=== PATIENT | female | born 1945 | race Caucasian/White ===

== ENCOUNTER 2024-05-04 05:20 | Inpatient (IN) ==
--- NOTE | 2024-04-29 14:45 | Anesthesiology Consultation ---
Date of Service April 29, 2024 Assessment & Plan (1) Encounter for pre-operative examination: - Check BSG AM DOS - Infectious disease screening: Per assessment on 04/29/24: No known recent infectious disease contacts or current infectious disease symptoms. Chart Review Chart Review: Acceptable Risk for Surgery (pending evaluation DOS) and Patient NOT seen in Pre Admission Testing History Surgery Operation Date: 05/04/24 07:15 Proposed Procedures p Laparoscopic Sigmoid Colon Resection as well as, Right Salpingo-Oophorectomy - Sagar Garza, Height/Weight Height: 5 ft 5 in Weight: 74.389 kg Allergies Allergy/AdvReac Type Severity Reaction Status Date / Time Iodinated Contrast Media Allergy Severe Anaphylaxis Verified 04/29/24 14:03 Penicillins Allergy Severe "heart Verified 04/29/24 14:03 stopped" nickel Allergy Mild skin Verified 04/29/24 14:03 irritation/infection Medications Home Medications Medication Instructions Recorded Confirmed Last Taken cyanocobalamin (vitamin B-12) 2,500 mcg sublingual UD 02/20/24 04/29/24 04/16/24 2,500 mcg sublingual tablet (Vitamin B-12) lisinopril 2.5 mg tablet 2.5 mg PO QAM 02/20/24 04/29/24 04/19/24 05:00 metformin 850 mg tablet 850 mg PO BID 02/20/24 04/29/24 04/18/24 pantoprazole 40 mg tablet,delayed 40 mg PO QAM 02/20/24 04/29/24 04/19/24 05:00 release peg 3350-electrolytes 236 240 ml PO Q10M #4,000 mL 04/06/24 04/28/24 04/19/24 gram-22.74 gram-6.74 gram-5.86 gram solution (GaviLyte-G) calcium carbonate 600 mg-vitamin 1 tab PO DAILY 04/16/24 04/29/24 04/16/24 D3 5 mcg (200 unit) tablet Past Medical History Medical History Diabetes Taking Lisinopril for renal protection (hx diabetes) Diverticular disease Diverticulitis 02/2024- resolved per patient Dysphagia EGD 04/19/24 [facility] > 4cm hiatal hernia, changes consistent with Browne's esophagus Edema of both ankles Chronic Environmental and seasonal allergies GERD (gastroesophageal reflux disease) History of rectal bleeding 02/2024- R/t diverticulitis per [facility] visit No current issues per patient Hx of cervical cancer Age ~38, removal of cervix only Iron deficiency anemia Receiving iron infusions, last one was ~ [address] [facility] Mass of colon Ovarian mass, right Stricture of sigmoid colon Past Family History Family History Sister Breast cancer Past Surgical History Surgical History History of esophagogastroduodenoscopy (EGD) History of lumbar surgery (2003) L5-L6 History of open reduction and internal fixation (ORIF) procedure left arm History of partial hysterectomy ~age 70 History of tonsillectomy and adenoidectomy Hx of appendectomy w/exploratory laparotomy for HAYDEE and "took appendix too" Hx of cardiac catheterization > 6 years ago- No stents Hx of colonoscopy Social History Smoking Status: Never smoker Do You Dip or Chew Tobacco: No Hx Alcohol Use: No Hx Substance Use: No substance use type: does not use Lab Results Anesthesia Preop Results Results Anesthesia Widget: WBC 9.07 K/ul (4.8-10.8) 04/29/24 Hgb 13.2 g/dl (12.0-16.0) 04/29/24 Hct 41.9 % (37.0-47.0) 04/29/24 Plt 246 K/uL (130-400) 04/29/24 Na 138 mmol/L (136-145) 04/29/24 K 4.8 mmol/L (3.5-5.1) 04/29/24 Cl 105 mmol/L (98-107) 04/29/24 CO2 26 mmol/L (21-32) 04/29/24 BUN 15 mg/dl (6-23) 04/29/24 Creat 0.81 mg/dl (0.6-1.2) 04/29/24 Glucose Level 119 mg/dl (70-99(Fasting)) H 04/29/24 Testing Electrocardiogram Date: 02/20/24 NSR at 89bpm. Cannot r/o anterior infarct, age undetermined. No physical limitations and no SOB with stairs noted per PAT RN phone interview 04/29/24* Chest X-Ray Date: 02/20/24 Findings: + NAD
[2024-05-04] MEDS: metroNIDAZOLE 500 MG/100 ML BAG IV SCH ×2 (06:18→15:51)
[2024-05-04] MEDS: HEPARIN SOD 5,000 UNIT/0.5 ML VIAL SQ SCH (06:18)
[2024-05-04] MEDS: LR 15ML/HR IV SCH (06:18)
[2024-05-04] MEDS ORDERED: fentaNYL citrate PF 100 MCG/2 ML VIAL ONE ×3 (06:46→10:20)
[2024-05-04] MEDS ORDERED: ROCURONIUM BROMIDE 10 MG/ML 5 ML VIAL IV ONE ×2 (06:46→09:24)
[2024-05-04] MEDS ORDERED: LIDOCAINE 2% 2 ML VIAL/AMP(20MG/ML) INFIL ONE (06:46)
[2024-05-04] MEDS ORDERED: PROPOFOL IV EMULSION 10 MG/ML 20 ML VIAL IV ONE (06:46)
[2024-05-04] MEDS ORDERED: MIDAZOLAM HCL 1 MG/ML 2ML VIAL ONE (06:46)
[2024-05-04] MEDS ORDERED: ONDANSETRON INJ 2 MG/ML 2 ML VIAL IV PRN ×2 (06:51→11:46)
[2024-05-04] MEDS ORDERED: LABETALOL HCL IV 5 MG/ML 20ML IV PRN (06:51)
[2024-05-04] MEDS ORDERED: ATROPINE SULFATE 0.1 MG/ML 10ML SYR IV PRN (06:51)
[2024-05-04] MEDS ORDERED: PROMETHAZINE HCL 6.25 MG in SODIUM CHLORIDE 0.9% 50 ML IV PRN (06:51)
[2024-05-04] MEDS ORDERED: ACETAMINOPHEN 1000 MG/100 ML IV IV ONE (06:56)
--- NOTE | 2024-05-04 06:59 | History & Physical Bridge Note ---
Date of Service May 04, 2024 History & Physical Bridge Note I have examined the patient, reviewed the History & Physical and in the interval since the performance of the History & Physical I have noted the following changes of clinical significance: no changes noted
[2024-05-04] MEDS: CIPROFLOXACIN / D5W 400 MG/200 ML BAG IV SCH ×2 (07:17→18:05)
[2024-05-04] MEDS ORDERED: KETAMINE HCL 10MG/ML SYR ONE (07:41)
[2024-05-04] MEDS ORDERED: LABETALOL HCL IV 5 MG/ML 20ML IV ONE (08:07)
[2024-05-04] MEDS ORDERED: DexMEDEtomidine HCL IV 100 MCG/ML VIAL IV ONE (08:13)
[2024-05-04] MEDS ORDERED: SUGAMMADEX SODIUM 200 MG/2 ML VIAL IV ONE (09:55)
[2024-05-04] MEDS: BUPIVACAINE/EPINEPHRINE 0.5% MPF 1:200,000 30 ML VIAL ONE (10:05)
[2024-05-04] MEDS ORDERED: ONDANSETRON INJ 2 MG/ML 2 ML VIAL ONE (10:21)
[2024-05-04] MEDS ORDERED: HYDROmorphone INJ 2 MG/ML SYR/VIAL ONE (10:22)
--- NOTE | 2024-05-04 10:28 | Post Operative Brief Note ---
PG Immediate Post Op with CF Date of Surgery May 04, 2024 Pre & Post Diagnosis Operation Date: 05/04/24 07:15 Pre-Op Diagnosis: Mass of Colon Stricture Sigmoid Colon Right Ovarian Cyst Post-Op Diagnosis: Mass of Colon Stricture Sigmoid Colon Right Ovarian Cyst I identified the patient and participated in the time-out.: Yes Procedure Operation Date: 05/04/24 07:15 Actual Procedures p Laparoscopic Sigmoid Coloectomy with Right Salpingo-Oophorectomy, Take down of Colocolonic Fistual(Not Applicable) - Sagar Garza DO Surgeon Sagar Garza DO Vp Design carmen Fuentes Estimated Blood Loss 100 Findings Consistent with Post-Op Diagnosis Specimens Specimen Description: A. Right Tube and Ovary B. Sigmoid Colon C. Additional Distal Margin Drains Vallejo Catheter and Mohinder-Mortensen Drain
[2024-05-04] MEDS: KETOROLAC 30 MG/ML VIAL IV PRN (10:40)
[2024-05-04] MEDS: HYDROmorphone INJ 1 MG/ML SYRINGE IV PRN (10:41)
[2024-05-04] MEDS: HYDROmorphone INJ 0.5 MG/0.5 ML SYR IV PRN (11:05)
--- NOTE | 2024-05-04 11:39 | Anesthesiology Progress Note ---
Date of Service May 04, 2024 Anesthesia Post Procedure Vital Signs Vital Signs: Temp Pulse Pulse Resp BP BP Pulse Ox 05/04/24 11:30 36.2 C L 61 15 131/61 97 05/04/24 11:20 60 15 134/62 97 05/04/24 11:10 63 15 154/83 H 99 05/04/24 11:00 62 15 139/73 97 05/04/24 10:55 58 L 15 134/63 97 05/04/24 10:45 57 L 15 150/67 H 95 05/04/24 10:35 36.1 C L 55 L 17 150/67 H 99 05/04/24 05:49 36.7 C 88 20 158/94 H 97 O2 Del Method O2 Flow Rate 05/04/24 11:30 Nasal Cannula 2 05/04/24 11:20 Oxymask 5 05/04/24 11:10 Oxymask 5 05/04/24 11:00 Oxymask 5 05/04/24 10:55 Oxymask 5 05/04/24 10:45 Oxymask 5 05/04/24 10:35 Oxymask 5 05/04/24 05:49 Room Air Transfer of Care Handoff Completed per policy Notes Mental Status: alert / awake / arousable Patient Amnestic to Procedure: Yes Nausea / Vomiting: adequately controlled Pain: adequately controlled Airway Patency, RR, SpO2: stable & adequate BP & HR: stable & adequate Hydration State: stable & adequate Anesthetic Complications: no major complications apparent
[2024-05-04] MEDS ORDERED: HYDROmorphone PCA 30 MG/30 ML IV PRN (11:46)
[2024-05-04] MEDS ORDERED: NALOXONE HCL 0.4 MG/1 ML VIAL/CARP IV PRN (11:46)
--- NOTE | 2024-05-04 11:55 | Operative Report ---
PG Post Operative Report Pre & Post Diagnosis Operation Date: 05/04/24 07:15 Pre-Op Diagnosis: Mass of Colon Stricture Sigmoid Colon Right Ovarian Cyst Post-Op Diagnosis: Mass of Colon Stricture Sigmoid Colon Right Ovarian Cyst I identified the patient and participated in the time-out.: Yes Procedure Operation Date: 05/04/24 07:15 Actual Procedures p Laparoscopic Sigmoid Coloectomy with Right Salpingo-Oophorectomy, Take down of Colofallo Fistual(Not Applicable) - Sagar Garza DO Surgeon Sagar Garza DO Scientific Diver carmen Fuentes Estimated Blood Loss 100 Findings Consistent with Post-Op Diagnosis Specimens 1. sigmoid colon 2. right ovary/fallopian tube 3. additional distal margin Description of Procedure After informed consent was obtained the patient was taken to the operating room and placed in supine position. After successful intubation the patient was placed in a low lithotomy position in yellowfin stirrups. A Vallejo catheter was placed sterilely. The abdomen and perineum were sterilely prepped and draped in usual fashion. I began by making a supraumbilical incision with an 11 blade scalpel and carried this down through the soft tissue using cautery. Anterior fascia was opened using cautery and two #0 Vicryl stay sutures were placed. Peritoneum was entered using blunt finger penetration and a 12 mm Ricci trocar was placed. The abdomen was insufflated to 18 mmHg. Laparoscope was inserted and the abdomen was examined in 360 degrees. The patient was placed in a Trendelenburg position and slightly airplaned to the right. There was no evidence of any metastatic disease. The tattoo eulogio left by gastroenterology was readily apparent in the sigmoid colon. There was also a large simple cyst of the right ovary. The left tube and ovary looked normal. I placed a right lower quadrant 12 mm trocar a right mid abdominal 5 mm trocar and eventually a left lower quadrant 5 mm trocar. I was able to readily palpate through the graspers that the mass in the sigmoid colon which was just proximal to the tattoo eulogio. I was also able to easily manipulate the right ovary, fallopian tube and cyst. Because it appeared benign and the cyst was tightly adherent to the right pelvic wall I decided to drain the cyst first. I deroofed the cyst using the harmonic scalpel. I drained probably 200 cc of clear serous appearing fluid. Once this was done I was able to manipulate the right ovary and fallopian tube. I was able to identify the right ureter to keep it out of harm's way. I took down the ovarian vessels using the harmonic scalpel. I was then able to come across the fallopian tube as well as the ligament and completely excise the small residual fallopian tube right ovary and cyst wall. They were placed into an Endo Catch bag and removed from the pelvis. I then suctioned and irrigated out the entire pelvis. Next I mobilized the left and sigmoid colon along the white line of Toldt using blunt dissection as well as harmonic scalpel. I noted that there was initially what appeared to be an adhesion from the sigmoid colon to the lower pelvic sidewall. However after closer inspection this appeared to be a fistulous connection. It was unclear to me what it was connected to but this would clearly have to be detached. This l agustín was part of the process at her prior admission where she was felt to have diverticulitis. I was able to use a JOSAFAT purple cartridge linear stapler to transect this connection. Once I transected the connection I could then see that the colon was actually fistulized to distal rectum. Once I took down the fistulous tract I was then able to easily mobilize the sigmoid colon down over the peritoneal reflection. I then made a window in the mesentery of the rectosigmoid colon using the harmonic scalpel. I then transected the colon distal to the mass using a JOSAFAT purple cartridge linear staplers. I then continued to use the harmonic scalpel to take down the mesentery of the sigmoid colon until we were several inches proximal to the mass itself. Next I elongated the left lower quadrant incision and open the fascia using cautery. We were able to deliver the distal stapled end of the sigmoid colon onto the anterior abdominal wall. We did towel off the incision to help prevent infecti on. We delivered the sigmoid colon as well as the mass. I put a bowel clamp proximal to the mass and divided the colon using a Braden scissor. The mass was in the central portion of the specimen with good margin distally and proximally. Next we used sizers to estimate the lumen size to be 28 mm. The anvil of a 28 mm circular stapler was used. I used 2-0 silk to hand sew a pursestring and then inserted the anvil and secured it using the pursestring. There was no ischemia and there appeared to be good blood flow. This was then placed back into the abdominal cavity. At this point we changed our gloves. I closed the fascial defect using 0 PDS in a running fashion. We re-insufflated the abdomen. Reinserted the laparoscope. Next we used sizers to come in through the rectum to the rectal stump. The staple line was slightly crooked causing the rectal stump to lay awkwardly which I did not prefer. I therefore used a JOSAFAT purple stapler to take several centimeters distal to what I previously stapled. We did send this as additional distal margin. Once this occurred I then brought in the handle of the EEA circular stapler. The postion of the rectum looked much better. I deployed the spike anterior to the staple line. We connected the anvil to the handle secured them together and fired creating a circular anastomosis. Both donuts did appear to be intact. We used a rigid proctoscope to evaluate the anastomosis and inflated it under water. It was in fact airtight. We thoroughly irrigated the lower pelvis. There was adequate hemostasis. The colon laid nice and flat without tension and there was no evidence of ischemia. A 10 flat Mohinder-Mortensen drain was placed into the pelvis and brought out through the right lower quadrant trocar site. It was secured to the skin using 0 Vicryl. A final look around the abdomen showed no other abnormalities. The trocars were all removed and the abdomen desufflated. The fascia of the camera port was closed using 0 Vicryl in a [id number] fashion. All the wounds were irrigated. The larger incision was closed using 3-0 Vicryl for deep layers and 4-0 Monocryl for skin. 10 cc's of Exparel was injected around this larger incision. The smaller incisions were all closed using 4-0 Monocryl. Marcaine with epinephrine was injected around those incisions. Dermabond glue was used as a dressing on all of the incisions. The patient was awakened extubated and transferred to recovery in stable condition. My physician anesthetic assistant was present for the entire case was instrumental in all aspects of the case including access, running the camera, assisting with the dissection, anastomosis wound closure and dressing placement. I attest to the content of the Intraoperative Record and any orders documented therein. Any exceptions are noted below.
[2024-05-04] MEDS: HYDROmorphone INJ 1 MG/ML SYRINGE ONE (12:28)
[2024-05-04] MEDS: LACTATED RINGER'S 1,000 ML IV SCH (12:46)
[2024-05-04] MEDS: SODIUM CHLORIDE 0.9% 1,000 ML IV SCH (13:25)
[2024-05-04] MEDS: ACETAMINOPHEN 1,000 MG/100 ML VIAL IV SCH (13:29)
[2024-05-04] MEDS ORDERED: PHARMACY GLYCEMIC MGMT CONSULT PRN (14:23)
[2024-05-04] MEDS: INSULIN ASPART PER UNIT CHARGE SC SCH (15:01)
[2024-05-04] MEDS: LANTUS PER UNIT CHARGE SC ONE (15:01)
--- NOTE | 2024-05-04 15:03 | Pharmacy Report ---
Pharmacy Glycemic Short Note 2 - Date of Service May 04, 2024 - Glycemic Short BSG Results (Last 24 hours): 05/04/24 05/04/24 05/04/24 06:44 10:36 14:55 POC Glucose 165 H 205 H 240 H OUTPATIENT ANTIDIABETIC REGIMEN: * Metformin 850 mg BID * HbA1c: ordered for 05/05/2024 ASSESSMENT: * Melinda is a 78 YO F admitted for a sigmoid coloectomy and with a history of T2DM . Pharmacy has been consulted to assist with glycemic management while inpatient. Patient is currently NPO. * Patient received no steroids pre-operatively Fasting BSG this AM is acceptable . Lantus was initiated for basal glycemic control with 5 units being given in the afternoon and a protocol for BID dosing being added for additional control as needed. * Novolog was initiated at a weight based stress of 2. PLAN FOR INPATIENT GLYCEMIC CONTROL: * Hold outpatient oral diabetes medications * Basal insulin * Lantus 0-5 units SQ BID, 5 units given at 15:00 on 05/04 * Bolus insulin * NovoLog per scale ACHS or Q6hrs while NPO * Goal Range: Low 110 mg/dL - High 140 mg/dL * Correction Factor: 30 mg/dL/unit * Nutritional / Prandial insulin per carb ratio of 1 unit per 10 grams CHO consumed
[2024-05-04] MEDS: LANTUS PER UNIT CHARGE SC SCH (22:23)
[2024-05-05] MEDS: KETOROLAC TROMETHAMINE 15 MG/ML VIAL IV ONE (00:29)
[2024-05-05] MEDS: hydrALAZINE HCL 20 MG/ML VIAL IV STA (01:58)
[2024-05-05 07:24] LABS: Basophils # (auto) 0.02 K/uL (0.00-0.20); Basophils % (auto) 0.2 %; Eosinophils # (auto) 0.02 K/uL (0.00-0.50); Eosinophils % (auto) 0.2 %; Hemoglobin 11.4 g/dl (12.0-16.0); Immature Granulocytes # (auto) 0.05 K/uL (0.01-0.20); Immature Granulocytes % (auto) 0.4 %; Lymphocytes # (auto) 1.87 K/uL (1.20-3.40); Lymphocytes % (auto) 14.5 %; Mean Corpuscular Hemoglobin 27.2 pg (25.0-34.0); Mean Corpuscular Hgb Conc 32.6 g/dL (32.0-36.0); Mean Corpuscular Volume 83.5 fL (80.0-100.0); Mean Platelet Volume 9.9 fL (9.4-12.4); Monocytes # (auto) 0.77 K/uL (0.11-0.59); Neutrophils # (auto) 10.18 K/uL (1.40-6.50); Neutrophils % (auto) 78.7 %; Platelet Count 249 K/uL (130-400); RDW Coefficient of Variation 21.6 % (11.5-14.5); RDW Standard Deviation 63.1 fL (36.4-46.3); Red Blood Count 4.19 M/uL (4.20-5.40); White Blood Count 12.91 K/ul (4.8-10.8)
[2024-05-05 07:40] LABS: Calcium 8.5 mg/dl (8.6-10.3); Creatinine Clr Calc Pharmacy 77.3 ml/min; Est GFR (African American) 101.2 ml/min; Est GFR (Non-African American) 87.3 ml/min; Potassium 4.1 mmol/L (3.5-5.1)
[2024-05-05 07:42] LABS: RBC Morphology Unremarkable
--- NOTE | 2024-05-05 07:53 | Surgery Progress Note ---
Date of Service May 05, 2024 Assessment & Plan (1) Mass of colon: Plan: POD#1 sigmoid colectomy WBC 12.9, Hbg 11.4, Cr 0.6 HTN overnight and given a 1x dose of hydralazine. will order pts home lisinopril this AM Making good urine & ambulating well, will d/c awad catheter [employer]QUIPMENT TECHNICIAN never initiated yesterday as pt without complaints of abdominal pain and was doing well with standing tylenol. therefore i will d/c it and order prn IV doses should she need it Will likely start dvt ppx in form of lovenox today Sips/chips for this AM, if continues to do well will adv to clears later today OOB ambulating, pulmonary toilet, continue CORTEZ drain as above. doing very well. no pain. will try clears today. no acute post op issues. Admission and Anticipated Discharge Date Admission Date: May 04, 2024 Subjective Patient reports feeling well this AM. Denies abdominal pain or nausea. Had a severe headache overnight, given toradol x1 with improvement. She is ambulating the hallways. Physical Exam Physical Exam: awake/alert, no distress Respiratory: normal respiratory effort Gastrointestinal (Abdomen): Inspection/Auscultation: + abdominal surgical incision (c/d/i with skin glue, no signs of infection) and + abdominal surgical drain present (serosang., 225cc documented since OR); abdomen not distended Percussion/Palpation: abdomen soft; abdomen nontender Results & Data Vital Signs (Past 12 Hours) Vital Signs Temp Pulse Resp BP Pulse Ox O2 Del Method 05/05/24 03:49 98.1 F 74 12 155/71 H 96 Room Air 05/05/24 00:00 97.9 F 63 12 175/73 H 92 Room Air 05/04/24 20:16 97.3 F L 63 12 187/78 H 97 Room Air PG Care Time/CCT Total # of Minutes Spent Total Time Spent with Patient: Total time spent is greater than 50% in coordination of care (as documented) at patient's floor/unit and/or counseling patient: Coding Level of Care Code 77364 Post Operative Follow-Up Diagnoses Mass of colon K63.89
[2024-05-05] MEDS ORDERED: HYDROmorphone INJ 0.5 MG/0.5 ML SYR IV PRN ×2 (07:55)
[2024-05-05 08:15] LABS: Estimated Average Glucose 160 mg/dl; Hemoglobin A1C 7.2 % (4.5-5.6)
[2024-05-05] MEDS: lisinopril 2.5 MG TAB PO SCH (08:39)
[2024-05-05] MEDS: PANTOprazole 40 MG TAB PO SCH (08:39)
--- NOTE | 2024-05-05 10:33 | Hospitalist Consultation ---
Date of Consultation May 05, 2024 Assessment & Plan (1) Postoperative hypertension: Asymptomatic No need to treat except with her routine medication of lisinopril unless sBP > 220 or dBP > 120 consistently as more likely to overtreat and cause orthostasis rather than any benefit. Continue lisinopril Hydralazine for sBP > 220, sBP > 120 (2) Diabetes: HbA1C 7.2. No need to change outpatient regimen on discharge Pharmacy consulted for management per primary team (3) GERD (gastroesophageal reflux disease): Continue pantoprazole Plan Thank you for the consult we will continue to follow the patient with you History of Present Illness Reason for Consultation: post op HTN Attending Physician: Sagar Garza, DO History of Present Illness Melinda Collins is a 78 year old female presents for elective Laparoscopic Sigmoid Colectomy with Right Salpingo-Oophorectomy performed yesterday by Dr Garza. Estimated blood loss 100ml. No complication mentioned in operative note. Medicine consulted for post operative hypertension. She received her usual lisinopril 2.5mg PO this morning. BP 207/75. Other than her abdomen she currently feels at her baseline. No vision changes, dizziness or chest pain. Allergies Allergy/AdvReac Type Severity Reaction Status Date / Time Iodinated Contrast Media Allergy Severe Anaphylaxis Verified 05/04/24 05:54 Penicillins Allergy Severe "heart Verified 05/04/24 05:54 stopped" nickel Allergy Mild skin Verified 05/04/24 05:54 irritation/infection Home Medications Medication Instructions Recorded Confirmed Type cyanocobalamin (vitamin B-12) 2,500 mcg sublingual UD 02/20/24 05/04/24 History 2,500 mcg sublingual tablet (Vitamin B-12) lisinopril 2.5 mg tablet 2.5 mg PO QAM 02/20/24 05/04/24 History metformin 850 mg tablet 850 mg PO BID 02/20/24 05/04/24 History pantoprazole 40 mg tablet,delayed 40 mg PO QAM 02/20/24 05/04/24 History release peg 3350-electrolytes 236 240 ml PO Q10M #4,000 mL 04/06/24 05/04/24 Rx gram-22.74 gram-6.74 gram-5.86 gram solution (GaviLyte-G) calcium carbonate 600 mg-vitamin 1 tab PO DAILY 04/16/24 05/04/24 History D3 5 mcg (200 unit) tablet Patient History Medical History (Updated 05/05/24 @ 10:40 by Ruben Tamayo MD) History of rectal bleeding 02/2024- R[facility] No current issues per patient Ovarian mass, right Mass of colon Dysphagia EGD 04/19/24 [facility] > 4cm hiatal hernia, 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 Hx of cervical cancer Age ~38, removal of cervix only Diverticular disease Diverticulitis 02/2024- resolved per patient Edema of both ankles Chronic Iron deficiency anemia Receiving iron infusions, last one was ~ 3 weeks ago at [facility] Environmental and seasonal allergies GERD (gastroesophageal reflux disease) Diabetes Taking Lisinopril for renal protection (hx diabetes) Surgical History (Updated 05/05/24 @ 14:05 by Elicia Ac, ALEX) History of right oophorectomy (05/04/24) Laparoscopic Sigmoid Coloectomy with Right Salpingo-Oophorectomy, Take down of Colofallo Fistual(Not Applicable) - Sagar Garza, DO History of colon surgery (05/04/24) Laparoscopic Sigmoid Coloectomy with Right Salpingo-Oophorectomy, Take down of Colofallo Fistual(Not Applicable) - Sagar Garza, DO Hx of colonoscopy Hx of appendectomy w/exploratory laparotomy for HAYDEE and "took appendix too" History of tonsillectomy and adenoidectomy History of lumbar surgery (2003) L5-L6 History of esophagogastroduodenoscopy (EGD) History of open reduction and internal fixation (ORIF) procedure left arm History of partial hysterectomy ~age 70 Hx of cardiac catheterization > 6 years ago- No stents Family History Sister Breast cancer Social History Smoking Status: Never smoker Second Hand Exposure: No; Do You Dip or Chew Tobacco: No; Tobacco Cessation Education Requested by Patient: No Hx Alcohol Use: No Hx Substance Use: No Preferred Language: Lithuanian Communication Ability: Effective 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 Beliefs That Will Affect Care: Buddhism Buddhism Beliefs: methodist marital status: / Current Living Situation: Alone How many Children do You have: 2 Other Information That Helps Us Care for You: No Feels Safe at Home: Yes Safety Concerns: Feels Safe At This Time during the past year weight has: remained stable Assistive Devices: None Review of Systems Review of Systems: All systems reviewed & are unremarkable except as noted in HPI & below Physical Exam Constitutional: WD/WN, vitals as above Respiratory: normal respiratory effort, lungs clear to auscultation Cardiovascular: RRR, no murmur, no edema Gastrointestinal (Abdomen): Percussion/Palpation: + abdomen tender (mild expected post operative tenderness) and abdomen soft; no guarding and abdomen not rigid Skin: incisions clean/dry/intact Neurologic: moves all extremities and awake; not confused Psychiatric: A+Ox3, euthymic affect Results & Data Results & Data Vital Signs (Past 12 Hours) Vital Signs Temp Pulse Resp BP BP Pulse Ox O2 Del Method 05/05/24 09:58 63 17 207/75 H 97 Room Air 05/05/24 09:58 200/76 H 05/05/24 07:53 36.7 C 78 16 196/101 H 96 Room Air 05/05/24 03:49 36.7 C 74 12 155/71 H 96 Room Air 05/05/24 00:00 36.6 C 63 12 175/73 H 92 Room Air Laboratory Results Abnormal lab results 05/04/24 05/04/24 05/04/24 Range/Units 10:36 14:55 17:58 WBC (4.8-10.8) K/ul RBC (4.20-5.40) M/uL Hgb (12.0-16.0) g/dl Hct (37.0-47.0) % RDW Std Deviation (36.4-46.3) fL RDW Coeff of Owen (11.5-14.5) % Neut # (Auto) (1.40-6.50) K/uL Adams # (Auto) (0.11-0.59) K/uL Glucose (70-99(Fasting)) mg/dl POC Glucose 205 H 240 H 221 H (70-99) mg/dl Hemoglobin A1c (4.5-5.6) % Calcium (8.6-10.3) mg/dl 05/04/24 05/05/24 05/05/24 Range/Units 22:17 00:19 06:03 WBC (4.8-10.8) K/ul RBC (4.20-5.40) M/uL Hgb (12.0-16.0) g/dl Hct (37.0-47.0) % RDW Std Deviation (36.4-46.3) fL RDW Coeff of Owen (11.5-14.5) % Neut # (Auto) (1.40-6.50) K/uL Adams # (Auto) (0.11-0.59) K/uL Glucose (70-99(Fasting)) mg/dl POC Glucose 212 H 183 H 125 H (70-99) mg/dl Hemoglobin A1c (4.5-5.6) % Calcium (8.6-10.3) mg/dl 05/05/24 05/05/24 Range/Units 06:51 08:31 WBC 12.91 H (4.8-10.8) K/ul RBC 4.19 L (4.20-5.40) M/uL Hgb 11.4 L (12.0-16.0) g/dl Hct 35.0 L (37.0-47.0) % RDW Std Deviation 63.1 H (36.4-46.3) fL RDW Coeff of Owen 21.6 H (11.5-14.5) % Neut # (Auto) 10.18 H (1.40-6.50) K/uL Adams # (Auto) 0.77 H (0.11-0.59) K/uL Glucose 138 H (70-99(Fasting)) mg/dl POC Glucose 144 H (70-99) mg/dl Hemoglobin A1c 7.2 H (4.5-5.6) % Calcium 8.5 L (8.6-10.3) mg/dl Medications Administered Current Medications Hydromorphone HCl (Hydromorphone Inj 0.5 Mg/0.5 Ml Syr) 0.25 mg IV Q3H PRN PRN Reason: Moderate Pain (Scale 4, 5, 6) Stop: 05/19/24 07:54 Hydromorphone HCl (Hydromorphone Inj 0.5 Mg/0.5 Ml Syr) 0.5 mg IV Q3H PRN PRN Reason: Severe Pain (Scale 7, 8, 9,10) Stop: 05/19/24 07:54 Lactated Ringer's (Lr) 1,000 mls @ 125 mls/hr IV .Q8H [facility] Stop: 06/03/24 11:45 Last Admin: 05/05/24 07:27 Dose: Not Given Acetaminophen (Ofirmev) 1,000 mg in 100 mls @ 400 mls/hr IV Q8H [facility] Stop: 05/07/24 11:45 Last Infusion: 05/05/24 03:51 Dose: Infused Ciprofloxacin (Cipro / D5w) 400 mg in 200 mls @ 100 mls/hr IV Q12H [facility]; Protocol Stop: 05/05/24 18:59 Last Infusion: 05/05/24 09:38 Dose: Infused Metronidazole (Flagyl) 500 mg in 100 mls @ 100 mls/hr IV Q8H [facility]; Protocol Stop: 05/05/24 13:59 Last Infusion: 05/05/24 07:19 Dose: Infused Sodium Chloride (Nss) 1,000 mls @ 15 mls/hr IV .Q24H [facility] Stop: 05/18/24 11:46 Last Admin: 05/04/24 13:25 Dose: Not Given Insulin Aspart (Insulin Aspart Per Unit Charge) 0 units SC Q6 [facility] Stop: 06/03/24 14:59 Last Admin: 05/05/24 06:06 Dose: Not Given Insulin Glargine (Lantus Per Unit Charge) 0 units SC BID [facility]; Protocol Stop: 06/03/24 20:59 Last Admin: 05/05/24 08:39 Dose: Not Given Lisinopril (Lisinopril 2.5 Mg Tab) 2.5 mg PO QAM [facility] Stop: 06/04/24 08:59 Last Admin: 05/05/24 08:39 Dose: 2.5 mg Miscellaneous Information (Pharmacy Glycemic Mgmt Consult) 1 each N/A UD PRN; Protocol PRN Reason: Consult Stop: 06/03/24 14:22 Naloxone HCl (Naloxone Hcl 0.4 Mg/1 Ml Vial/Carp) 0.1 mg IV Q5M PRN; Protocol PRN Reason: Oversedation/Resp Depression Stop: 05/18/24 11:45 Ondansetron HCl (Ondansetron Inj 2 Mg/Ml 2 Ml Vial) 4 mg IV Q4H PRN PRN Reason: Nausea And Vomiting Stop: 06/03/24 11:45 Pantoprazole Sodium (Pantoprazole 40 Mg Tab) 40 mg PO QAM JOANNA Stop: 06/04/24 08:59 Last Admin: 05/05/24 08:39 Dose: 40 mg PG Care Time/CCT Total # of Minutes Spent Total Time Spent with Patient: Total time spent is greater than 50% in coordination of care (as documented) at patient's floor/unit and/or counseling patient: Coding Level of Care Code 08770 IN/OBS CONSULT LVL 4,60M Diagnoses Postoperative hypertension I97.3 Diabetes E11.9 GERD (gastroesophageal reflux disease) K21.9
[2024-05-05] MEDS ORDERED: hydrALAZINE HCL 20 MG/ML VIAL IV PRN (10:45)
[2024-05-05] MEDS ORDERED: Nursing to Pharmacy Communication SCH (12:15)
--- NOTE | 2024-05-05 13:54 | Pharmacy Report ---
Pharmacy Glycemic Short Note 2 - Date of Service May 05, 2024 - Glycemic Short BSG Results (Last 24 hours): 05/04/24 05/04/24 05/04/24 14:55 17:58 22:17 Glucose POC Glucose 240 H 221 H 212 H 05/05/24 05/05/24 05/05/24 00:19 06:03 06:51 Glucose 138 H POC Glucose 183 H 125 H 05/05/24 05/05/24 08:31 12:01 Glucose POC Glucose 144 H 126 H OUTPATIENT ANTIDIABETIC REGIMEN: * Metformin 850 mg BID * HbA1c: 7.2% 05/05/24 ASSESSMENT: 05/05 * BSGs improved over last 24 hrs * A1c resulted this AM showing good control on metformin monotherapy - may consider resuming in future if tolerating PO and renal fxn adequate * Fasting BSG 125 this AM w/ 10 units basal on board. Will continue a similar dose today - again using BID scale. * Difficult to assess Novolog doses as pt has been NPO. Diet has been advanced to clears this afternoon. Will follow post-prandial BSG patter and adjust as needed. 05/04 * Melinda is a 78 YO F admitted for a sigmoid colectomy and with a history of T2DM . Pharmacy has been consulted to assist with glycemic management while inpatient. Patient is currently NPO. * Patient received no steroids pre-operatively Fasting BSG this AM is acceptable . Lantus was initiated for basal glycemic control with 5 units being given in the afternoon and a protocol for BID dosing being added for additional control as needed. * Novolog was initiated at a weight based stress of 2. PLAN FOR INPATIENT GLYCEMIC CONTROL: * Hold outpatient oral diabetes medications * Basal insulin * Lantus 0-5 units SQ BID per scale: 0 units if BSG less than 180 * Bolus insulin * NovoLog per scale ACHS or Q6hrs while NPO * Goal Range: Low 110 mg/dL - High 140 mg/dL * Correction Factor: 30 mg/dL/unit * Nutritional / Prandial insulin per carb ratio of 1 unit per 10 grams CHO consumed
[2024-05-05] MEDS: ENOXAPARIN INJ 40 MG/0.4 ML SYR SQ SCH (16:06)
[2024-05-05] MEDS: INSULIN ASPART PER UNIT CHARGE SC SCH (17:04)
[2024-05-06 07:44] LABS: Basophils # (auto) 0.02 K/uL (0.00-0.20); Basophils % (auto) 0.2 %; Eosinophils # (auto) 0.13 K/uL (0.00-0.50); Eosinophils % (auto) 1.6 %; Hematocrit (blood only) 35.7 % (37.0-47.0); Hemoglobin 11.8 g/dl (12.0-16.0); Immature Granulocytes # (auto) 0.02 K/uL (0.01-0.20); Immature Granulocytes % (auto) 0.2 %; Lymphocytes # (auto) 1.82 K/uL (1.20-3.40); Lymphocytes % (auto) 22.5 %; Mean Corpuscular Hemoglobin 26.9 pg (25.0-34.0); Mean Corpuscular Hgb Conc 33.1 g/dL (32.0-36.0); Mean Corpuscular Volume 81.5 fL (80.0-100.0); Mean Platelet Volume 10.1 fL (9.4-12.4); Monocytes # (auto) 0.56 K/uL (0.11-0.59); Monocytes % (auto) 6.9 %; Neutrophils # (auto) 5.54 K/uL (1.40-6.50); Neutrophils % (auto) 68.6 %; Platelet Count 242 K/uL (130-400); RDW Coefficient of Variation 21.7 % (11.5-14.5); RDW Standard Deviation 61.8 fL (36.4-46.3); Red Blood Count 4.38 M/uL (4.20-5.40); White Blood Count 8.09 K/ul (4.8-10.8)
[2024-05-06] MEDS ORDERED: traMADol HCL 50 MG TABLET PO PRN (07:59)
[2024-05-06 08:11] LABS: Anisocytosis Present
--- NOTE | 2024-05-06 08:15 | Hospitalist Progress Note ---
Date of Service May 06, 2024 Assessment & Plan (1) Postoperative hypertension: Plan: Asymptomatic No need to treat except with her routine medication of lisinopril unless sBP > 220 or dBP > 120 consistently as more likely to overtreat and cause orthostasis rather than any benefit. Continue lisinopril Hydralazine for sBP > 220, sBP > 120 Per supervising provider, lisinopril increased to 10mg daily given ongoing HTN and not reporting any significant amount of pain Hydralazine changed as well Of note, patient did report she gets "white coat syndrome" and her PCP decreased her lisinopril from 5mg to 2.5mg as BP readings at home had been 110/70s. Will decrease back to 5mg for AM but monitor BPs for hypotension w/ increased dose this morning (appears was given 10+2.5mg rather than total 10mg dose) (2) Mass of colon: Plan: s/p Laparoscopic Sigmoid Coloectomy with Right Salpingo-Oophorectomy, Take down of Colofallo Fistual(Not Applicable) - Sagar Garza, on 05/04 Post op management per primary service Currently on full liquid diet Was given Flagyl/Cipro madelin-operative abx x 24hrs WBC wnl, has been afebrile Chemistries pending Will add mag to AM labs for completeness, ensure stable w/ bowel surgery LOW/replacement as below K 3.5, primary service already ordered 20meq Kcl replacement DVT proph: SCDs. Lovenox SQ added 05/05 Monitor labs/exam on repeat (3) Diabetes: Plan: HbA1C 7.2. No need to change outpatient regimen on discharge Pharmacy consulted for management per primary team (4) GERD (gastroesophageal reflux disease): Plan: Continue pantoprazole (5) Hypomagnesemia: Plan: checked mag level w/ bowel surgery Mag LOW 1.3, IV replacement ordered Monitor on repeat in AM Plan Thank you for the consult we will continue to follow the patient with you Admission and Anticipated Discharge Date Admission Date: May 04, 2024 Supervising Physician Co-Signing Physician Notes The patient was not seen by me. The chart was reviewed. Case discussed with ALYSA Dougherty. Agree with assessment and plan Subjective Patient evaluated this morning, has been ambulating the halls without issues. Passing gas. BP elevated, not having much pain. Lisinipril increased but patient does report having white coat syndrome and recent reduction in lisinopril from 5mg to 2.5mg. Discussed additional dose for this morning but will decreased back to 5mg for AM but suspect needing control. She reports being upgraded for her diet this morning, seen by surgery and told to "do less" however she is very active and likes to walk the halls. Dressing around CORTEZ w/ some shadowing, to be changed. Has some redness to LLQ incision/groin region which looks like could just be from irritation from walking and doesn't appear infected but will monitor/can consider topical bactroban if needed. No CP/SOB, nausea/vomiting. Had some back discomfort overnight but relieved with tylenol. Questions/concerns addressed at this time. Physical Exam Physical Exam: 78yo female resting in bed, witnessed am bulating the ludwig for multiple laps this morning, NAD in bed Head atraumatic, normocephalic, mmm, trachea midline Resp: even/unlabored, slightly diminished in the bases, on room air CV: RRR, no significant m/r/g, chronic LE edema/unchanged, pulses present RUE w/ prior IV site infiltration, pulses present/sensation intact - new IV site moved to proximal RUE GI: +BS throughout, slight distension but no overt tenderness appropriately tender to incisions, dressing w/ CORTEZ w/ some shadowing (RN to change), serosanguineous drainage in CORTEZ LLQ/groin incision w/ slight redness but no warmth/drainage/overt tenderness : no awad MSK/Neuro: nonfocal, answering questions appropriately, not confused Psych: AOx3, cooperative with exam Results & Data Results & Data Vital Signs (Past 12 Hours) Vital Signs Temp Pulse Resp BP Pulse Ox O2 Del Method 05/06/24 07:12 36.4 C L 74 18 201/96 H 94 Room Air 05/06/24 06:48 18 05/06/24 03:04 18 95 Room Air 05/05/24 23:00 78 20 97 Room Air Laboratory Results 05/06/24 05/06/24 05/05/24 Range/Units 07:36 07:07 20:47 WBC 8.09 (4.8-10.8) K/ul RBC 4.38 (4.20-5.40) M/uL Hgb 11.8 L (12.0-16.0) g/dl Hct 35.7 L (37.0-47.0) % MCV 81.5 (80.0-100.0) fL MCH 26.9 (25.0-34.0) pg MCHC 33.1 (32.0-36.0) g/dL RDW Std Deviation 61.8 H (36.4-46.3) fL RDW Coeff of Owen 21.7 H (11.5-14.5) % Plt Count 242 (130-400) K/uL MPV 10.1 (9.4-12.4) fL Immature Gran % (Auto) 0.2 % Neut % (Auto) 68.6 % Lymph % (Auto) 22.5 % Larimer % (Auto) 6.9 % Eos % (Auto) 1.6 % Baso % (Auto) 0.2 % Neut # (Auto) 5.54 (1.40-6.50) K/uL Lymph # (Auto) 1.82 (1.20-3.40) K/uL Larimer # (Auto) 0.56 (0.11-0.59) K/uL Eos # (Auto) 0.13 (0.00-0.50) K/uL Baso # (Auto) 0.02 (0.00-0.20) K/uL Immature Gran # (Auto) 0.02 (0.01-0.20) K/uL Anisocytosis Present Sodium 138 (136-145) mmol/L Potassium 3.5 (3.5-5.1) mmol/L Chloride 105 (98-107) mmol/L Carbon Dioxide 24 (21-32) mmol/L Anion Gap 9 (3-11) BUN 6 (6-23) mg/dl Creatinine 0.55 L (0.6-1.2) mg/dl Est Cr Clr Drug Dosing 84.3 ml/min Est GFR ( Amer) 104.1 ml/min Est GFR (Non-Af Amer) 89.8 ml/min BUN/Creatinine Ratio 10.9 (10-20) Glucose 142 H (70-99(Fasting)) mg/dl POC Glucose 135 H 130 H (70-99) mg/dl Calcium 8.7 (8.6-10.3) mg/dl Magnesium 1.3 L (1.7-2.4) mg/dl 05/05/24 05/05/24 Range/Units 16:34 12:01 WBC (4.8-10.8) K/ul RBC (4.20-5.40) M/uL Hgb (12.0-16.0) g/dl Hct (37.0-47.0) % MCV (80.0-100.0) fL MCH (25.0-34.0) pg MCHC (32.0-36.0) g/dL RDW Std Deviation (36.4-46.3) fL RDW Coeff of Owen (11.5-14.5) % Plt Count (130-400) K/uL MPV (9.4-12.4) fL Immature Gran % (Auto) % Neut % (Auto) % Lymph % (Auto) % Larimer % (Auto) % Eos % (Auto) % Baso % (Auto) % Neut # (Auto) (1.40-6.50) K/uL Lymph # (Auto) (1.20-3.40) K/uL Larimer # (Auto) (0.11-0.59) K/uL Eos # (Auto) (0.00-0.50) K/uL Baso # (Auto) (0.00-0.20) K/uL Immature Gran # (Auto) (0.01-0.20) K/uL Anisocytosis Sodium (136-145) mmol/L Potassium (3.5-5.1) mmol/L Chloride (98-107) mmol/L Carbon Dioxide (21-32) mmol/L Anion Gap (3-11) BUN (6-23) mg/dl Creatinine (0.6-1.2) mg/dl Est Cr Clr Drug Dosing ml/min Est GFR ( Amer) ml/min Est GFR (Non-Af Amer) ml/min BUN/Creatinine Ratio (10-20) Glucose (70-99(Fasting)) mg/dl POC Glucose 166 H 126 H (70-99) mg/dl Calcium (8.6-10.3) mg/dl Magnesium (1.7-2.4) mg/dl PG Care Time/CCT Total # of Minutes Spent Total Time Spent with Patient: Total time spent is greater than 50% in coordination of care (as documented) at patient's floor/unit and/or counseling patient: Coding Level of Care Code 17205 SUB INP/OBS CARE 350MIN Diagnoses Postoperative hypertension I97.3 Mass of colon K63.89 Diabetes E11.9 GERD (gastroesophageal reflux disease) K21.9 Hypomagnesemia E83.42
[2024-05-06] MEDS: lisinopril 10 MG TAB PO SCH (08:24)
[2024-05-06] MEDS ORDERED: lisinopril 2.5 MG TAB PO ONE (08:30)
[2024-05-06 09:00] LABS: BUN Creatinine Ratio 10.9 (10-20); Calcium 8.7 mg/dl (8.6-10.3); Creatinine Clr Calc Pharmacy 84.3 ml/min; Est GFR (African American) 104.1 ml/min; Est GFR (Non-African American) 89.8 ml/min; Potassium 3.5 mmol/L (3.5-5.1)
[2024-05-06 09:02] LABS: Magnesium 1.3 mg/dl (1.7-2.4)
[2024-05-06] MEDS: POTASSIUM CHLORIDE CRTAB 20 MEQ TABCR PO STA (09:21)
[2024-05-06] MEDS: MAGNESIUM SULFATE / D5W 1 GM/100 ML BAG IV SCH (09:21)
--- NOTE | 2024-05-06 14:12 | Surgery Progress Note ---
Date of Service May 06, 2024 Assessment & Plan (1) History of colon surgery: Plan: doing well POD 2 will advance diet. awaiting full bowel fx Admission and Anticipated Discharge Date Admission Date: May 04, 2024 Subjective pt seen. doing very well. no pain. filippo clears. no nausea Physical Exam Physical Exam: alert. nad. abd: soft. nt. CORTEZ serous. wounds look good Results & Data Vital Signs (Past 12 Hours) Vital Signs Temp Pulse Resp BP Pulse Ox O2 Del Method 05/06/24 12:14 36.6 C 80 18 150/97 H 97 Room Air 05/06/24 08:24 217/115 H 05/06/24 08:00 Room Air 05/06/24 07:12 36.4 C L 74 18 201/96 H 94 Room Air 05/06/24 06:48 18 05/06/24 03:04 18 95 Room Air PG Care Time/CCT Total # of Minutes Spent Total Time Spent with Patient: Total time spent is greater than 50% in coordination of care (as documented) at patient's floor/unit and/or counseling patient: Coding Level of Care Code 84191 Post Operative Follow-Up Diagnoses History of colon surgery Z98.890
[2024-05-07] MEDS: hydrALAZINE HCL 20 MG/ML VIAL IV PRN (00:31)
--- NOTE | 2024-05-07 07:57 | Surgery Progress Note ---
Date of Service May 07, 2024 Assessment & Plan (1) History of colon surgery: Plan: POD#3 sigmoid colectomy & R salpingo-oophorectomy Labs pending this AM. Vitals stable outside of HTN the hospitalists are assisting us with managing Pain well controlled with tylenol She has been advanced to full liquids and tolerating this well. Continue fulls until BM then may advance to low fiber Will continue to monitor LLQ incision Continue CORTEZ drain until dispo OOB ambulating, pulmonary toilet Dr carlson covering the wknd as above. doing well. no pain or nausea filippo diet awaiting full return of bowel fx before advancing diet path still pending Admission and Anticipated Discharge Date Admission Date: May 04, 2024 Subjective Patient feels great. Denies pain or nausea. Tolerating fulls. Passing some gas, no BM yet. Physical Exam Physical Exam: awake/alert, no distress Respiratory: normal respiratory effort Gastrointestinal (Abdomen): Inspection/Auscultation: + abdominal surgical incision (c/d/i with skin glue, some bruising/erythema of LLQ site); abdomen not distended Percussion/Palpation: abdomen soft; abdomen nontender CORTEZ Drain serosang; 15cc over last 24 hrs Results & Data Vital Signs (Past 12 Hours) Vital Signs Temp Pulse Resp BP Pulse Ox O2 Del Method 05/07/24 05:30 97.7 F 87 16 180/77 H 93 Room Air 05/07/24 01:33 169/70 H 05/06/24 23:32 97.5 F L 81 16 214/105 H 95 Room Air 05/06/24 20:33 98.2 F 73 16 168/78 H 95 Room Air PG Care Time/CCT Total # of Minutes Spent Total Time Spent with Patient: Total time spent is greater than 50% in coordination of care (as documented) at patient's floor/unit and/or counseling patient: Coding Level of Care Code 86084 Post Operative Follow-Up Diagnoses History of colon surgery Z98.890
[2024-05-07 08:14] LABS: Basophils # (auto) 0.03 K/uL (0.00-0.20); Basophils % (auto) 0.4 %; Eosinophils # (auto) 0.35 K/uL (0.00-0.50); Eosinophils % (auto) 4.4 %; Hematocrit (blood only) 35.9 % (37.0-47.0); Hemoglobin 12.1 g/dl (12.0-16.0); Immature Granulocytes # (auto) 0.02 K/uL (0.01-0.20); Immature Granulocytes % (auto) 0.3 %; Lymphocytes # (auto) 1.66 K/uL (1.20-3.40); Mean Corpuscular Hemoglobin 27.4 pg (25.0-34.0); Mean Corpuscular Hgb Conc 33.7 g/dL (32.0-36.0); Mean Corpuscular Volume 81.2 fL (80.0-100.0); Mean Platelet Volume 10.5 fL (9.4-12.4); Monocytes # (auto) 0.61 K/uL (0.11-0.59); Monocytes % (auto) 7.7 %; Neutrophils # (auto) 5.22 K/uL (1.40-6.50); Neutrophils % (auto) 66.2 %; Platelet Count 278 K/uL (130-400); RDW Coefficient of Variation 21.6 % (11.5-14.5); RDW Standard Deviation 61.4 fL (36.4-46.3); Red Blood Count 4.42 M/uL (4.20-5.40); White Blood Count 7.89 K/ul (4.8-10.8)
[2024-05-07 08:32] LABS: Calcium 8.7 mg/dl (8.6-10.3); Magnesium 1.8 mg/dl (1.7-2.4); Potassium 3.5 mmol/L (3.5-5.1)
[2024-05-07 08:37] LABS: BUN Creatinine Ratio 10.9 (10-20); Creatinine Clr Calc Pharmacy 84.3 ml/min; Est GFR (African American) 104.1 ml/min; Est GFR (Non-African American) 89.8 ml/min
[2024-05-07 08:43] LABS: Anisocytosis Present
--- NOTE | 2024-05-07 08:58 | Hospitalist Progress Note ---
Date of Service May 07, 2024 Assessment & Plan (1) Postoperative hypertension: Plan: Asymptomatic No need to treat except with her routine medication of lisinopril unless sBP > 220 or dBP > 120 consistently as more likely to overtreat and cause orthostasis rather than any benefit. Continue lisinopril Hydralazine for sBP > 220, sBP > 120 Given 10 lisinopril on 05/06 however does have hx white coat syndrome and PCP prior reduced her lisinopril to 2.5mg given home BP readings systolic 110s. Decreased to 5mg QAM 05/07 however additional 2.5mg dose provided and will monitor for need to increase to 7.5mg daily for now. Asymptomatic from elevated BP at this time and can monitor. Hydralazine available for significant elevations and did get a dose overnight. (2) Mass of colon: Plan: s/p Laparoscopic Sigmoid Coloectomy with Right Salpingo-Oophorectomy, Take down of Colofallo Fistual(Not Applicable) - Sagar Garza, on 05/04 Post op management per primary service Currently on full liquid diet Was given Flagyl/Cipro madelin-operative abx x 24hrs WBC wnl, has been afebrile Mag 1.3--> IV replacement and 1.8 today. 1gm IV additional to get closer to 2 20meq Kcl PO Full liquid diet per primary, passing gas. ambulating. Tylenol IV effective for pain control Per primary, planning for low fiber diet once moving her bowels Lovenox SQ for DVT proph (3) Diabetes: Plan: HbA1C 7.2. No need to change outpatient regimen on discharge Pharmacy consulted for management per primary team (4) GERD (gastroesophageal reflux disease): Plan: Continue pantoprazole (5) Hypomagnesemia: Plan: checked mag level w/ bowel surgery -- REPLACEMENT for 1.3 w/ normal 1.8 today but additional 1gm to keep closer to 2 w/ bowel surgery Plan Thank you for the consult we will continue to follow the patient with you while inpatient Admission and Anticipated Discharge Date Admission Date: May 04, 2024 Supervising Physician Co-Signing Physician Notes The patient was not seen by me. The chart was reviewed. Case discussed with ALYSA Josue. Agree with assessment and plan Subjective Eval this morning, already took >10 walks in the [place]. Passing gas, no bowel movement yet. On full liquid diet, she is hopeful for discharge in next 2 days if starts to move her bowels. Tylenol effective for pain control. BP elevated but stable in hospital se tting/recent surgery w/ her known "white coat syndrome" history but did increase her lisinopril and will monitor. No fever/chills. Abdomen soft. LLQ incision w/ some bruising redness but no warmth/evidence for infection at present but will monitor. Questions/concerns addressed at this time. Physical Exam Physical Exam: 78yo female resting in bed, witnessed am bulating the [place] for multiple laps this morning, NAD in bed Head atraumatic, normocephalic, mmm, trachea midline Resp: even/unlabored, slightly diminished in the bases, on room air CV: RRR, no significant m/r/g, chronic LE edema/unchanged, pulses present GI: +BS throughout, slight distension but no overt tenderness appropriately tender to incisions, dressing w/ CORTEZ w/ some shadowing (RN to change), serosanguineous drainage in CORTEZ LLQ/groin incision w/ some bruising, no evidence for infection at present : no awad MSK/Neuro: nonfocal, answering questions appropriately, not confused Psych: AOx3, cooperative with exam Results & Data Results & Data Vital Signs (Past 12 Hours) Vital Signs Temp Pulse Resp BP BP Pulse Ox O2 Del Method 05/07/24 08:01 36.7 C 86 18 196/100 H 94 Room Air 05/07/24 05:30 36.5 C 87 16 180/77 H 93 Room Air 05/07/24 01:33 169/70 H 05/06/24 23:32 36.4 C L 81 16 214/105 H 95 Room Air Laboratory Results 05/07/24 05/07/24 05/06/24 Range/Units 07:58 07:28 21:12 WBC 7.89 (4.8-10.8) K/ul RBC 4.42 (4.20-5.40) M/uL Hgb 12.1 (12.0-16.0) g/dl Hct 35.9 L (37.0-47.0) % MCV 81.2 (80.0-100.0) fL MCH 27.4 (25.0-34.0) pg MCHC 33.7 (32.0-36.0) g/dL RDW Std Deviation 61.4 H (36.4-46.3) fL RDW Coeff of Owen 21.6 H (11.5-14.5) % Plt Count 278 (130-400) K/uL MPV 10.5 (9.4-12.4) fL Immature Gran % (Auto) 0.3 % Neut % (Auto) 66.2 % Lymph % (Auto) 21.0 % Graham % (Auto) 7.7 % Eos % (Auto) 4.4 % Baso % (Auto) 0.4 % Neut # (Auto) 5.22 (1.40-6.50) K/uL Lymph # (Auto) 1.66 (1.20-3.40) K/uL Graham # (Auto) 0.61 H (0.11-0.59) K/uL Eos # (Auto) 0.35 (0.00-0.50) K/uL Baso # (Auto) 0.03 (0.00-0.20) K/uL Immature Gran # (Auto) 0.02 (0.01-0.20) K/uL Anisocytosis Present Sodium 138 (136-145) mmol/L Potassium 3.5 (3.5-5.1) mmol/L Chloride 104 (98-107) mmol/L Carbon Dioxide 25 (21-32) mmol/L Anion Gap 9 (3-11) BUN 6 (6-23) mg/dl Creatinine 0.55 L (0.6-1.2) mg/dl Est Cr Clr Drug Dosing 84.3 ml/min Est GFR ( Amer) 104.1 ml/min Est GFR (Non-Af Amer) 89.8 ml/min BUN/Creatinine Ratio 10.9 (10-20) Glucose 161 H (70-99(Fasting)) mg/dl POC Glucose 169 H 152 H (70-99) mg/dl Calcium 8.7 (8.6-10.3) mg/dl Magnesium 1.8 (1.7-2.4) mg/dl 05/06/24 Range/Units 17:18 WBC (4.8-10.8) K/ul RBC (4.20-5.40) M/uL Hgb (12.0-16.0) g/dl Hct (37.0-47.0) % MCV (80.0-100.0) fL MCH (25.0-34.0) pg MCHC (32.0-36.0) g/dL RDW Std Deviation (36.4-46.3) fL RDW Coeff of Owen (11.5-14.5) % Plt Count (130-400) K/uL MPV (9.4-12.4) fL Immature Gran % (Auto) % Neut % (Auto) % Lymph % (Auto) % Graham % (Auto) % Eos % (Auto) % Baso % (Auto) % Neut # (Auto) (1.40-6.50) K/uL Lymph # (Auto) (1.20-3.40) K/uL Graham # (Auto) (0.11-0.59) K/uL Eos # (Auto) (0.00-0.50) K/uL Baso # (Auto) (0.00-0.20) K/uL Immature Gran # (Auto) (0.01-0.20) K/uL Anisocytosis Sodium (136-145) mmol/L Potassium (3.5-5.1) mmol/L Chloride (98-107) mmol/L Carbon Dioxide (21-32) mmol/L Anion Gap (3-11) BUN (6-23) mg/dl Creatinine (0.6-1.2) mg/dl Est Cr Clr Drug Dosing ml/min Est GFR ( Amer) ml/min Est GFR (Non-Af Amer) ml/min BUN/Creatinine Ratio (10-20) Glucose (70-99(Fasting)) mg/dl POC Glucose 88 (70-99) mg/dl Calcium (8.6-10.3) mg/dl Magnesium (1.7-2.4) mg/dl PG Care Time/CCT Total # of Minutes Spent Total Time Spent with Patient: Total time spent is greater than 50% in coordination of care (as documented) at patient's floor/unit and/or counseling patient: Coding Level of Care Code 24621 SUB INP/OBS CARE 2/35MIN Diagnoses Postoperative hypertension I97.3 Mass of colon K63.89 Diabetes E11.9 GERD (gastroesophageal reflux disease) K21.9 Hypomagnesemia E83.42
[2024-05-07] MEDS ORDERED: lisinopril 10 MG TAB PO SCH (09:00)
[2024-05-07] MEDS: POTASSIUM CHLORIDE CRTAB 20 MEQ TABCR PO STA (09:36)
[2024-05-07] MEDS: lisinopril 5 MG TAB PO SCH (09:36)
[2024-05-07] MEDS: MAGNESIUM SULFATE / D5W 1 GM/100 ML BAG IV ONE (09:36)
[2024-05-07] MEDS: lisinopril 2.5 MG TAB PO ONE (10:17)
[2024-05-07] MEDS: lisinopril 5 MG TAB PO ONE (10:40)
--- NOTE | 2024-05-07 14:50 | Pharmacy Report ---
Pharmacy Glycemic Sign Off Nt - Date of Service May 07, 2024 - Assessment & Plan ASSESSMENT: * Pharmacy was consulted by ALYSA Thomason on 05/04/2024 for glycemic control and to write orders per [facility] inpatient glycemic control protocol. * Major changes made by pharmacy to antidiabetic regimen include: * Added Novolog sacle with correction factor of 30 and carb ratio of 10. * Patient has been receiving/requiring <15 units of insulin per day for adequate glycemic control * BSGs ranging 88 - 179 mg/dl * Regimen has only required minor adjustments over the past 48hrs to achieve this level of control * Do not anticipate further changes in patient status that would quickly deteriorate glycemic control (i.e. patient to be NPO for upcoming procedure, steroids tapering, starting tube feedings, etc). * Please see recommendations for outpatient antidiabetic regimen below. PLAN FOR INPATIENT GLYCEMIC CONTROL: No changes needed to current regimen. * No basal insulin warranted at this time * Continue NovoLog per scale ACHS/Q6hrs while NPO * Goal range = 110 - 140 mg/dl * CF = 30 mg/dl/unit * CR = 1 unit for ever 10 g CHO consumed * Pharmacy is signing off of glycemic consult and will no longer be making adjustments to inpatient regimen. Please feel free to re-consult if needed. Thank you.
[2024-05-07] MEDS ORDERED: GLUCOSE 10 TAB/TUBE PO PRN (15:00)
[2024-05-07] MEDS ORDERED: CARBOHYDRATES FOR HYPOGLYCEMIA PO PRN (15:00)
[2024-05-07] MEDS ORDERED: GLUCOSE 40% GEL 15 GM TUBE PO PRN (15:00)
[2024-05-07] MEDS ORDERED: GLUCAGON FOR INJ 1 MG VIAL IM PRN (15:00)
[2024-05-07] MEDS ORDERED: DEXTROSE 50% 50 ML SYRINGE IV PRN (15:00)
[2024-05-07] MEDS: ACETAMINOPHEN 1,000 MG/100 ML VIAL IV PRN (23:19)
[2024-05-08 06:40] LABS: Basophils # (auto) 0.03 K/uL (0.00-0.20); Basophils % (auto) 0.4 %; Eosinophils # (auto) 0.63 K/uL (0.00-0.50); Eosinophils % (auto) 7.6 %; Hematocrit (blood only) 35.1 % (37.0-47.0); Hemoglobin 11.6 g/dl (12.0-16.0); Immature Granulocytes # (auto) 0.02 K/uL (0.01-0.20); Immature Granulocytes % (auto) 0.2 %; Lymphocytes # (auto) 2.58 K/uL (1.20-3.40); Mean Corpuscular Hemoglobin 27.1 pg (25.0-34.0); Monocytes # (auto) 0.68 K/uL (0.11-0.59); Monocytes % (auto) 8.2 %; Neutrophils # (auto) 4.37 K/uL (1.40-6.50); Neutrophils % (auto) 52.6 %; Platelet Count 273 K/uL (130-400); RDW Coefficient of Variation 21.7 % (11.5-14.5); RDW Standard Deviation 62.4 fL (36.4-46.3); Red Blood Count 4.28 M/uL (4.20-5.40); White Blood Count 8.31 K/ul (4.8-10.8)
[2024-05-08 07:02] LABS: BUN Creatinine Ratio 13.6 (10-20); Calcium 8.6 mg/dl (8.6-10.3); Creatinine Clr Calc Pharmacy 78.6 ml/min; Est GFR (African American) 101.7 ml/min; Est GFR (Non-African American) 87.8 ml/min; Magnesium 1.9 mg/dl (1.7-2.4)
[2024-05-08 07:22] LABS: Anisocytosis Present
[2024-05-08] MEDS ORDERED: POLYETHYLENE (MIRALAX) 17 GM PACK PO PRN (14:46)
--- NOTE | 2024-05-08 15:02 | Hospitalist Progress Note ---
Date of Service May 08, 2024 Assessment & Plan (1) Postoperative hypertension: Plan: Asymptomatic Home medication includes lisinopril 5 mg. She did receive 7.5 mg yesterday and did well. Will give an additional 5 mg of lisinopril now for blood pressure of 156/76 and change a.m. dose to 10 mg daily and monitor blood pressure while here. Hydralazine for SBP > 220, sBP > 120 No evidence of fluid overload suggesting need for diuretic Continue to monitor vital signs per protocol (2) Mass of colon: Plan: s/p Laparoscopic Sigmoid Coloectomy with Right Salpingo-Oophorectomy, Take down of Colofallo Fistual(Not Applicable) - Sagar Garza, DO on 05/04 Post op management per primary service Currently on full liquid diet Was given Flagyl/Cipro madelin-operative abx x 24hrs WBC wnl, has been afebrile Mag 1.3--> IV replacement and 1.9 today. Patient did receive 1gm IV magnesium yesterday Full liquid diet per primary, passing gas. ambulating. Tylenol IV effective for pain control Per primary, planning for low fiber diet once moving her bowels Lovenox SQ for DVT proph (3) Diabetes: Plan: HbA1C 7.2. No need to change outpatient regimen on discharge Pharmacy consulted for management per primary team (4) GERD (gastroesophageal reflux disease): Plan: Continue pantoprazole (5) Hypomagnesemia: Plan: checked mag level w/ bowel surgery -- REPLACEMENT for 1.3 w/ normal 1.9 today Follow serial labs Plan Thank you for including us in the care of this patient. We will continue to follow with you while inpatient Admission and Anticipated Discharge Date Admission Date: May 04, 2024 Supervising Physician Co-Signing Physician Notes The patient was not seen by me. The chart was reviewed. Case discussed with ALYSA Capone. Agree with assessment and plan Subjective Attending: Dr. Koch Patient seen in consultation at the request of the surgical service for blood pressure management. Patient seen and examined in room 382 bed 1. She is very active and is walking the halls regularly. She reports gas but no bowel movement. She is tolerating full liquid diet. Patient with no bowel movement since surgery. Will give patient bowel regimen including Colace, Senokot, and MiraLAX as needed Blood pressure continues to be elevated at 156/76 Patient with no chest pain or tightness. No shortness of breath. Tolerating activity. Review of Systems 2 Review of Systems: A total of 10 systems was reviewed and is negative other than as listed in the HPI Physical Exam 2 Physical Exam: GENERAL : No acute distress EYES: No icterus, gaze conjugate NOSE: No evidence of epistaxis MOUTH: No lesions or candidiasis NECK: Supple LUNGS: CTA B/L, no wheezes, rales or rhonchi HEART: Regular, rate controlled ABDOMEN: Soft, NT, ND, BS Present. Dressing dry and intact. Recently changed by nursing per patient report EXTREMITIES: No LE edema, pedal pulses intact NEURO: A&OX3 Results & Data Results & Data Vital Signs (Past 12 Hours) Vital Signs Temp Pulse Resp BP Pulse Ox O2 Del Method 05/08/24 07:15 36.5 C 79 18 156/76 H 95 Room Air Laboratory Results 05/08/24 05:45 05/08/24 05:45 PG Care Time/CCT Total # of Minutes Spent Total Time Spent with Patient: Total time spent is greater than 50% in coordination of care (as documented) at patient's floor/unit and/or counseling patient: 20 minutes Coding [place] [address] SUB INP/OBS CARE 2/35MIN Patient Type Established Medical Decision Making Straight Forward Diagnoses Postoperative hypertension I97.3 Mass of colon K63.89 Diabetes E11.9 GERD (gastroesophageal reflux disease) K21.9 Hypomagnesemia E83.42 Time Spent (min) 20
[2024-05-08] MEDS: DOCUSATE SODIUM 100 MG CAP PO SCH (15:34)
[2024-05-08] MEDS: lisinopril 5 MG TAB PO ONE (15:34)
--- NOTE | 2024-05-08 16:26 | Hospitalist Progress Note ---
Date of Service May 08, 2024 Assessment & Plan (1) Postoperative hypertension: Plan: Asymptomatic Home medication includes lisinopril 5 mg. Currently on lisinopril 10mg qAM, BP improving Hydralazine for SBP > 220, sBP > 120 No evidence of fluid overload suggesting need for diuretic Continue to monitor vital signs per protocol (2) Mass of colon: Plan: s/p Laparoscopic Sigmoid Coloectomy with Right Salpingo-Oophorectomy, Take down of Colofallo Fistual(Not Applicable) - Sagar Garza, DO on 05/04 Post op management per primary service Currently on full liquid diet Was given Flagyl/Cipro madelin-operative abx x 24hrs WBC wnl, has been afebrile Mag 1.3--> IV replacement and 1.9 today. Patient did receive 1gm IV magnesium yesterday Full liquid diet per primary, passing gas. ambulating. Tylenol IV effective for pain control Per primary, planning for low fiber diet once moving her bowels Lovenox SQ for DVT proph (3) Diabetes: Plan: HbA1C 7.2. No need to change outpatient regimen on discharge Pharmacy consulted for management per primary team (4) GERD (gastroesophageal reflux disease): Plan: Continue pantoprazole (5) Hypomagnesemia: Plan: checked mag level w/ bowel surgery -- REPLACEMENT for 1.3 w/ normal 1.9 today Follow serial labs Plan Thank you for including us in the care of this patient. We will continue to follow with you while inpatient Admission and Anticipated Discharge Date Admission Date: May 04, 2024 Subjective Pt ambulating multiple times States she is passing gas, but no BM yet Physical Exam Physical Exam: Gen: no acute distress HEENT: NC/AT, MMM CVS: s1s2 nl, RRR Lungs: CTAB Abd: soft, nl bowel sounds, drain still in place, incision c/d/i Ext: no edema Psyc: pleasant, communicating appropriately Results & Data Results & Data Vital Signs (Past 12 Hours) Vital Signs Temp Pulse Resp BP Pulse Ox O2 Del Method 05/08/24 07:15 36.5 C 79 18 156/76 H 95 Room Air PG Care Time/CCT Total # of Minutes Spent Total Time Spent with Patient: Total time spent is greater than 50% in coordination of care (as documented) at patient's floor/unit and/or counseling patient: Coding Level of Care Code 91225 SUB INP/OBS CARE MIN Diagnoses Postoperative hypertension I97.3 Mass of colon K63.89 Diabetes E11.9 GERD (gastroesophageal reflux disease) K21.9 Hypomagnesemia E83.42
--- NOTE | 2024-05-08 19:44 | Surgery Progress Note ---
Date of Service May 08, 2024 Assessment & Plan (1) History of colon surgery: Plan: POD#4 sigmoid colectomy & R salpingo-oophorectomy H/H stable, HD stable and afebrile No pain Will initiate low fiber Will continue to monitor LLQ incision. May scab over, no evidence for infection and wound edges remain coapted Continue CORTEZ drain until dispo OOB ambulating, pulmonary toilet I will follow up in the am F/U with Dr. Garza outpatient follow up after discharge Admission and Anticipated Discharge Date Admission Date: May 04, 2024 Subjective Patient seen and examined this am. She has been tolerating a full liquid diet. States she continues to have full bowel function and without pain. Physical Exam Gastrointestinal (Abdomen): Surgical incisions are sealed, without evidence for infection. CORTEZ drain in place with sero-sanguinous drainage. Leakage around the tubing with saturated dressings. Dressings changed at bedside and drain was milked expelling additional drainage. Bruising with signs of ischemia to skin edge at LLQ incision. No evidence for infection. Results & Data Vital Signs (Past 12 Hours) Vital Signs Temp Pulse Resp BP Pulse Ox O2 Del Method 05/08/24 17:29 36.4 C L 87 18 122/75 98 Room Air PG Care Time/CCT Total # of Minutes Spent Total Time Spent with Patient: Total time spent is greater than 50% in coordination of care (as documented) at patient's floor/unit and/or counseling patient: Coding Level of Care Code 43511 Post Operative Follow-Up Diagnoses History of colon surgery Z98.890
[2024-05-08] MEDS: SENNA 8.6 MG TAB PO SCH (20:54)
[2024-05-09 06:06] LABS: Basophils # (auto) 0.03 K/uL (0.00-0.20); Basophils % (auto) 0.3 %; Eosinophils # (auto) 0.71 K/uL (0.00-0.50); Eosinophils % (auto) 7.6 %; Hematocrit (blood only) 34.9 % (37.0-47.0); Hemoglobin 11.2 g/dl (12.0-16.0); Immature Granulocytes # (auto) 0.02 K/uL (0.01-0.20); Immature Granulocytes % (auto) 0.2 %; Lymphocytes # (auto) 2.54 K/uL (1.20-3.40); Lymphocytes % (auto) 27.3 %; Mean Corpuscular Hgb Conc 32.1 g/dL (32.0-36.0); Mean Corpuscular Volume 84.1 fL (80.0-100.0); Mean Platelet Volume 9.8 fL (9.4-12.4); Monocytes # (auto) 0.68 K/uL (0.11-0.59); Monocytes % (auto) 7.3 %; Neutrophils # (auto) 5.31 K/uL (1.40-6.50); Neutrophils % (auto) 57.3 %; Platelet Count 269 K/uL (130-400); RDW Coefficient of Variation 21.3 % (11.5-14.5); RDW Standard Deviation 63.3 fL (36.4-46.3); Red Blood Count 4.15 M/uL (4.20-5.40); White Blood Count 9.29 K/ul (4.8-10.8)
[2024-05-09 06:28] LABS: Anisocytosis Present; Polychromasia 1+
[2024-05-09] MEDS: lisinopril 10 MG TAB PO SCH (08:24)
[2024-05-09] MEDS: ACETAMINOPHEN 500 MG TAB PO PRN (08:54)
[2024-05-09] MEDS ORDERED: lisinopril 2.5 MG TAB PO SCH (09:00)
--- NOTE | 2024-05-09 09:47 | Surgery Progress Note ---
Date of Service May 09, 2024 Assessment & Plan (1) History of colon surgery: Plan: POD#5 sigmoid colectomy & R salpingo-oophorectomy. H/H stable, HD stable and afebrile. Continues to pass flatus, awaiting BM No pain Low fiber diet initiated Friday05/08/24 and patient is tolerating this Will continue to monitor LLQ incision. May scab over, no evidence for infection and wound edges remain coapted Continue CORTEZ drain until dispo OOB ambulating, pulmonary toilet Will f/u in the am F/U with Dr. Garza outpatient follow up after discharge Admission and Anticipated Discharge Date Admission Date: May 04, 2024 Subjective Patient seen and examined this am. She continues to feel well as she did yesterday without NV, F/C or abdominal pain. She says she is tolerating a low fiber diet and continues to pass flatus, has not yet had a BM Physical Exam Constitutional: no acute distress, not ill appearing and not diaphoretic Gastrointestinal (Abdomen): Abdomen unchanged from yesterday Surgical incisions remain coapted without evidence for infection, some mild bruising particularly at LLQ incision. CORTEZ drain in place with sero-sanguinous drainage. 40cc's reportedly emptied this am Results & Data Vital Signs (Past 12 Hours) Vital Signs Temp Pulse Resp BP Pulse Ox O2 Del Method 05/09/24 08:51 36.6 C 75 18 106/65 97 Room Air PG Care Time/CCT Total # of Minutes Spent Total Time Spent with Patient: Total time spent is greater than 50% in coordination of care (as documented) at patient's floor/unit and/or counseling patient: Coding Level of Care Code 82506 SUB INP/OBS CARE 10/09MIN Diagnoses History of colon surgery Z98.890
[2024-05-09 10:12] LABS: Calcium 8.8 mg/dl (8.6-10.3); Magnesium 1.8 mg/dl (1.7-2.4); Potassium 4.2 mmol/L (3.5-5.1)
[2024-05-09 10:17] LABS: BUN Creatinine Ratio 17.2 (10-20); Creatinine Clr Calc Pharmacy 72.5 ml/min; Est GFR (African American) 99.1 ml/min; Est GFR (Non-African American) 85.5 ml/min
--- NOTE | 2024-05-09 14:00 | Hospitalist Progress Note ---
Date of Service May 09, 2024 Assessment & Plan (1) Postoperative hypertension: Plan: Asymptomatic Patient reports that she is on 2.5 mg of lisinopril daily at home. She was initially started 10 mg p.o. daily and had presyncope. During her hospital stay she was increased to 5 mg and then given 2.5 mg additional for systolic pressure in the 150s. Yesterday patient received 5 mg of lisinopril in the morning and again in the afternoon with a blood pressure of 133/75 last evening Lisinopril changed to 10 mg p.o. daily. Blood pressure currently 106/65 with a heart rate of 75. Orthostatic pressures were completed with no drop in systolic pressure or increase in heart rate At the new dose of lisinopril, patient is able to ambulate in the hallways without lightheadedness or dizziness. Will continue to monitor vital signs per protocol and titrate lisinopril as needed Hydralazine for SBP > 220, sBP > 120 No evidence of fluid overload suggesting need for diuretic (2) Mass of colon: Plan: s/p Laparoscopic Sigmoid Coloectomy with Right Salpingo-Oophorectomy, Take down of Colofallo Fistual(Not Applicable) - Sagar Garza, DO on 05/04 Post op management per primary service Currently on full liquid diet Was given Flagyl/Cipro madelin-operative abx x 24hrs WBC wnl, has been afebrile Mag 1.3--> IV replacement with 1gm IV 05/09/2024, magnesium is 1.8 and potassium is 4.2 Diet per surgery. Continue ambulation as tolerated. Tylenol IV effective for pain control Per primary, planning for low fiber diet once moving her bowels Lovenox SQ for DVT proph (3) Diabetes: Plan: HbA1C 7.2. No need to change outpatient regimen on discharge Pharmacy consulted for management per primary team (4) GERD (gastroesophageal reflux disease): Plan: Continue pantoprazole (5) Hypomagnesemia: Plan: checked mag level w/ bowel surgery -- REPLACEMENT for 1.3 w/ normal 1.9 today Follow serial labs Plan Thank you for including us in the care of this patient. We will sign off at this time. Please feel free to reconsult as needed Admission and Anticipated Discharge Date Admission Date: May 04, 2024 Supervising Physician Co-Signing Physician Notes The patient was not seen by me. The chart was reviewed. Case discussed with ALYSA Capone. Agree with assessment and plan Subjective Attending: Dr. Koch Patient is doing well today. Still not passing gas or having bowel movements. Pain is well-controlled. We did increase her lisinopril to 10 mg p.o. daily. She received 5 mg yesterday morning and 5 mg yesterday afternoon. Blood pressure improved to 133 systolically. Patient was given 10 mg of lisinopril this morning. Blood pressure is now 106/65 Orthostatic pressures were completed at 1:00 on 05/09/2024. No significant change in systolic blood pressure or and heart rate Patient with no acute complaints. Review of Systems 2 Review of Systems: A total of 10 systems was reviewed and is negative other than as listed in the HPI Physical Exam 2 Physical Exam: GENERAL : No acute distress EYES: No icterus, gaze conjugate NOSE: No evidence of epistaxis MOUTH: No lesions or candidiasis NECK: Supple LUNGS: CTA B/L, no wheezes, rales or rhonchi HEART: Regular, rate controlled ABDOMEN: Soft, NT, ND, BS Present. CORTEZ drain with approximately 25 cc of serosanguineous fluid. No clotting appreciated. EXTREMITIES: No LE edema, pedal pulses intact NEURO: A&OX3 Results & Data Results & Data Vital Signs (Past 12 Hours) Vital Signs Temp Pulse Resp BP Pulse Ox O2 Del Method 05/09/24 08:51 36.6 C 75 18 106/65 97 Room Air Laboratory Results 05/09/24 05:39 05/09/24 05:39 PG Care Time/CCT Total # of Minutes Spent Total Time Spent with Patient: Total time spent is greater than 50% in coordination of care (as documented) at patient's floor/unit and/or counseling patient: Coding Level of Care Code 44588 SUB INP/OBS CARE 10/09MIN Diagnoses Postoperative hypertension I97.3 Mass of colon K63.89 Diabetes E11.9 GERD (gastroesophageal reflux disease) K21.9 Hypomagnesemia E83.42 Time Spent (min) 25 Comment Including d/w other providers
[2024-05-10 07:56] VITALS: BP 146/73; PULSE 86; RESP 18; TEMP 98.2; O2SAT 99
--- NOTE | 2024-05-10 08:37 | Surgery Progress Note ---
Date of Service May 10, 2024 Assessment & Plan (1) Adenocarcinoma of sigmoid colon: Plan: She is doing very well and ready for discharge. I did give her instructions. We will remove the drain prior to her leaving. I discussed with Saqib Simon from medicine and we we will send her home on lisinopril 10 mg daily. I did briefly discuss her path report which overall was favorable. It was well- differentiated and the lymph nodes were negative. I answered all of her questions. Discharge home this morning Admission and Anticipated Discharge Date Admission Date: May 04, 2024 Subjective Patient seen. Feeling well. She had multiple bowel movements yesterday. She is tolerating a regular diet Physical Exam Physical Exam: Alert no acute distress CORTEZ with serous output. Incisions look good Results & Data Vital Signs (Past 12 Hours) Vital Signs Temp Pulse Resp BP Pulse Ox O2 Del Method 05/10/24 07:54 36.8 C 86 18 146/73 H 99 Room Air 05/09/24 21:55 Room Air 05/09/24 21:00 36.6 C 88 16 136/66 97 Room Air PG Care Time/CCT Total # of Minutes Spent Total Time Spent with Patient: Total time spent is greater than 50% in coordination of care (as documented) at patient's floor/unit and/or counseling patient: Coding Level of Care Code 02086 Post Operative Follow-Up Diagnoses Adenocarcinoma of sigmoid colon C18.7
--- NOTE | 2024-05-18 09:10 | Discharge Summary ---
Date of Service May 10, 2024 Principal Diagnosis adenocarcinoma of sigmoid colon history of colon surgery Discharge Exam awake/alert, no distress Gastrointestinal (Abdomen) Inspection/Auscultation: + abdominal surgical incision (c/d/i with skin glue, mild bruising at LLQ site) and + abdominal surgical drain present (serosanguinous ); abdomen not distended Discharge Data Allergies Allergy/AdvReac Type Severity Reaction Status Date / Time Iodinated Contrast Media Allergy Severe Anaphylaxis Verified 05/04/24 05:54 Penicillins Allergy Severe "heart Verified 05/04/24 05:54 stopped" nickel Allergy Mild skin Verified 05/04/24 05:54 irritation/infection Consultations 05/05/24 10:07 Consult Hospitalist Routine Procedures Performed Operation Date: 05/04/24 07:15 Actual Procedures p Laparoscopic Sigmoid Coloectomy with Right Salpingo-Oophorectomy, Take down of Colofallo Fistual(Not Applicable) - Sagar Garza, DO Hospital Course (1) Adenocarcinoma of sigmoid colon: This is a 78yF who presented to the [facility] on 05/04 for an electively scheduled laparoscopic assisted sigmoid colon resection & R salpingo-oophorectomy with Dr. Garza for history of colonic mass & ovarian cyst. The patient tolerated the procedure well, see op note for full details. The patient recovered in the PACU and was transferred to the med/surg floor in stable condition with sips/chips, IVF, CORTEZ drain, awad and prn pain/nausea medication. The hospitalists were consulted for the duration of patient's admission for assistance with medical management and post op hypertension. POD#1 the patient's awad was removed and she was able to void without issues. DVT prophylaxis was started and ambulation was encouraged. She was started on clear liquids. As the patient's bowel function returned, at first with flatus and then eventually BM's her diet was slowly advanced throughout her stay from liquids to low fiber. Patient's pain remained well controlled on prn medications and she was ambulating frequently. CORTEZ drain remained serosang and was removed on day of discharge. On 05/10 the patient was doing very well and was stable for discharge to home. She was instructed to follow up in the office within 2 weeks for a post op check. (2) History of colon surgery: Total Time Total Time Spent Total Time Spent (In Minutes): 20 Discharge Plan Discharge Items Patient Disposition: Home - Self-Care Reason For Visit: Mass of Colon Stricture Sigmoid Colon Right Ovaria Discharge Diagnosis: Laparoscopic Sigmoid Colon Resection with Right Salpingo-Oophorectomy Activity: Per Instructions section Lifting: No more than 10 pounds Bathing Comment: you can shower. No soaking in pools or baths for 2 weeks Exercise/Sports: Wait until after follow-up appointment Driving/Machine Use: no driving while on narcotics for pain Non-emergency contact: Surgeon Call non-emergency contact if: you have any medication questions, you have a fever, your temperature is above 101.5, your wound has increased redness, your wound has increased drainage and your wound pain has increased Follow-up/Referrals: Sagar Garza DO [Surgeon] - (call office for a follow up in 2 weeks ) Namita Manning CRNP [Primary Care Provider] - 05/18/24 1:45 pm Diet: Low Fiber Diet Comment: low fiber Addtl Attending Provider Instructions: Your pain was controlled with Tylenol as needed throughout your hospitalization. You may purchase Tylenol and/or Ibuprofen over the counter if needed for additional pain control over the next few days. Take per manufacturers instructions. If you find you may need something more for your pain you may call the office to discuss. You have skin glue over your incisions called dermabond. you may shower with this on. It will tend to dissolve and fall off within a couple weeks. Do not pick at the skin glue You may cover the site where your drain was removed until it has healed up and no longer draining fluid. Cover with dry 4x4 gauze and adhere with medical tape, change daily and as needed until healed Continue on a low fiber diet until your follow up with the surgeon Your blood pressure was elevated throughout your hospitalization. your Lisinopril dose has been INCREASED to 10mg daily. Please follow up with your PCP within 1 week to review your hospitalization and recent events Pending Studies at Discharge: Yes Studies:: surgical pathology Stand-Alone Forms: My [facility] Medications and DC Order Prescriptions: Continued peg 3350-electrolytes [GaviLyte-G] 236-22.74-6.74 -5.86 gram recon soln 240 ml PO Q10M Qty: 4000 0RF Rx Instructions: Take per split dose instructions. until fecal effluent is clear cyanocobalamin (vitamin B-12) [Vitamin B-12] 2,500 mcg tablet, sublingual 2,500 mcg sublingual UD Rx Instructions: take 3x per week metformin 850 mg tablet 850 mg PO BID pantoprazole 40 mg tablet,delayed release (DR/EC) 40 mg PO QAM calcium carbonate-vitamin D3 600 mg-5 mcg (200 unit) Tablet 1 tab PO DAILY Changed lisinopril 2.5 mg tablet 10 mg PO QAM Qty: 0 0RF Discharge Orders: Discharge Order (Routine); Ordered 05/10/24 Ordered By: Kelly Fuentes Admission Data Admit Date/Time: 05/04/24 10:37 Attending Provider: Sagar Garza Admit Provider: Sagar Garza Primary Care Provider: Namita Manning Other Providers: Smith Bustos; Ruben Mahan; Keo Koch; Shaw Sandoval; Josiah Nayak; Drea Martinez; Belkis Maharaj; Scarlet Da Silva; Heather Hill; Isaiah gAuilera; Chang Parham; Rhoda White; Ruben Wiely; Ruben Tamayo; Demetrio Rodriguez; Cheyenne Oliva; Rosario Bellamy; Rosario Thomas; Ana Lilia Diaz; Jannet Pierre N; Mata Curry; Wojciech Petersen; Clarisa Miguel; Issa Farris; Curtis Mckeon; Belem Berkowitz.; Rena Allen; Dario Caraballo; Sonny Stallings; Keo Addison; Shaw Stokes; Jamia Sparrow; Jasmyn Gomes; Hina Shook; Jose Murphy Other Interventions: Discharge Summary Assessment (RN) Last Done: 05/10/24 09:33 Coding Level of Care Code 06250 IN/OBS DISCH 30 MIN/LESS Diagnoses Adenocarcinoma of sigmoid colon C18.7 History of colon surgery Z98.890
== END 2024-05-10 11:22 | disposition home or self-care (01) | DRG 330 ==
LOC: ASU 05:20 → 3N 10:37
DX: K56.699 Other intestinal obstruction unspecified as to partial versus complete obstruction; D50.9 Iron deficiency anemia, unspecified; Z79.899 Other long term (current) drug therapy; Z91.040 Latex allergy status; Z88.0 Allergy status to penicillin; E11.9 Type 2 diabetes mellitus without complications; E83.42 Hypomagnesemia; C18.7 Malignant neoplasm of sigmoid colon; D27.0 Benign neoplasm of right ovary; Z79.84 Long term (current) use of oral hypoglycemic drugs; K63.2 Fistula of intestine; K21.9 Gastro-esophageal reflux disease without esophagitis